=== PATIENT | female | born 1965 | race Caucasian/White ===

== ENCOUNTER 2016-12-06 18:00 | Emergency (ER) | payer MEDICAID ==
[~2016-12-06] VITALS: Ht 162.6 cm; Wt 87.3 kg
[~2016-12-06 18:00] MED LIST: ALPR0.5T PO; ASPI81TA3 PO; CYCL-319 PO; GLIP-95 PO; HYDR-906 PO; IBUP400T22 PO; LISI10TA2 PO; METF-480 PO; SIMV20TA PO; SITA100T8 PO
[2016-12-06 18:01] VITALS: Ht 162.6 cm; Wt 87.3 kg
[2016-12-06] MEDS ORDERED: METOCLOPRAMIDE 10 MG INJ IV STA (19:53)
[2016-12-06] MEDS ORDERED: SOD CHLORIDE 0.9% 1,000 ML IV STA (19:53)
[2016-12-06] MEDS ORDERED: DIPHENHYDRAMINE 50 MG INJ IV STA (19:53)
--- NOTE | 2016-12-06 20:47 | RADRPT ---
PROCEDURE: CT Brain without contrast. CLINICAL INDICATION: Headache TECHNIQUE: A CT of the brain was performed on a multidetector CT scanner utilizing axial sections from the skull base through the vertex without contrast. Images were reviewed on a high-resolution Zapproved workstation. Exam CTDI = 43.38 mGy and the DLP = 630.20 mGy-cm. One or more of the following dose reduction techniques were used: Automated exposure control Adjustment of the mA and/or kV according to patient size. Use of iterative reconstruction technique. COMPARISON: None available FINDINGS: There is no evidence of intracranial hemorrhage, mass effect or midline shift. No abnormal intra-ax ial or extra-axial fluid collections are seen. The density of the brain is normal and the gonzales/whit e matter differentiation is well preserved. The osseous structures are unremarkable. Paranasal sin uses are clear. IMPRESSION: 1. No intracranial hemorrhage, mass effect or midline shift. RPTAT: HHO .Nathan Quinonez MD, MD Date Time Electronically viewed and signed by .Nathan Quinonez MD, on 12/06/2016 20:46 .O/
[2016-12-06] MEDS ORDERED: ACET325T33 PO (21:18)
--- NOTE | 2016-12-07 01:20 | ERD ---
ER Documentation Chief Complaint Date/Time DATE: 12/07/16 TIME: 01:15 Chief Complaint HEADACHE SINCE MORNING HPI 51-year-old female presents to the emergency department complaining of headache since this morning. Patient describes the pain moderate in severity, describing as a tight band around his her head. She states she does have nausea this morning. She denies any dizziness, vision changes, no vomiting, lethargy. Patient states that she has been very stressed lately. ROS All systems reviewed and are negative except as per history of present illness. Medications Home Meds Active Scripts Acetaminophen* (Tylenol*) 325 Mg Tablet, 2 TAB PO Q4 Y for PAIN AND OR ELEVATED TEMP, #30 TAB Prov:ALVAREZ POLK PA-C 12/06/16 Cyclobenzaprine Hcl* (Cyclobenzaprine Hcl*) 10 Mg Tablet, 10 MG PO TID, #15 TAB Prov:ABILIO HASSAN [employer] PROFESSIONAL 03/30/16 Hydrocodone/Acetaminophen ([place] 5-325 Tablet) 1 Each Tablet, 1 TAB PO Q6H Y for PAIN, #20 TAB Prov:ABILIO HASSAN [employer] PROFESSIONAL 03/30/16 Ibuprofen* (Motrin*) 400 Mg Tab, 400 MG PO Q6H Y for PAIN AND OR ELEVATED TEMP, #30 TAB Prov:ABILIO HASSAN MILIT[employer] PROFESSIONAL 03/30/16 Alprazolam* (Xanax*) 0.5 Mg Tab, 0.5 MG PO Q8H Y for ANXIETY, #14 TAB Prov:ARMOND KIM DO 11/10/15 Reported Medications Metformin* (Glucophage*) 850 Mg Tablet, 850 MG PO WITH BREAKFAST DINNE, #60 TAB 11/04/15 Glipizide* (Glipizide*) 10 Mg Tablet, 20 MG PO BID, TAB 10/23/15 Simvastatin* (Zocor*) 20 Mg Tablet, 20 MG PO QHS, #30 TAB 10/23/15 Aspirin* (Aspirin* Chew) 81 Mg Tab.chew, 81 MG PO DAILY, TAB.CHEW 10/23/15 Lisinopril* (Lisinopril*) 10 Mg Tablet, 10 MG PO DAILY, #30 TAB 10/23/15 Sitagliptin* (Januvia*) 100 Mg Tablet, 100 MG PO DAILY, #30 TAB 10/23/15 Allergies Allergies: Coded Allergies: No Known Allergy (Unverified , 12/06/16) PMhx/Soc Medical and Surgical Hx: pt denies Surgical Hx History of Surgery: No Anesthesia Reaction: No Hx Neurological Disorder: No Hx Respiratory Disorders: No Hx Cardiac Disorders: Yes (CHELESTEROL) Hx Psychiatric Problems: No Hx Miscellaneous Medical Probl: Yes (DM2) Hx Alcohol Use: No Hx Substance Use: No Hx Tobacco Use: No Smoking Status: Never smoker Physical Exam Vitals Vital Signs Date Time Temp Pulse Resp B/P Pulse Ox O2 Delivery O2 Flow Rate FiO2 12/06/16 18:01 97.6 75 19 135/78 97 Physical Exam GENERAL: well-developed/well-nourished, in no apparent distress, non-toxic appearing HENT: NC/AT, bilateral tympanic membrane is normal with good cone of light, nares patent, oropharynx clear without exudates EYES: Conjunctiva normal, PERRLA, EOMI, no nystagmus noted NECK: Supple, no lymphadenopathy PULM: CTA bilaterally, no rales, rhonchi, or wheezing heard CV: Normal S1S2, RRR, good capillary refill GI: Soft, non-distended, normal bowel sounds, non-tender BACK: No midline tenderness, no masses, No CVAT EXT: No clubbing, cyanosis, or edema NEURO: Alert and orientated to person, place, and time. CN II-IIX intact. Gait and coordination were normal. Hand band tumbler strength were equal and within normal limits SKIN: Intact, normal turgor PSYCH: Normal mood and mentation, patient denied SI Results 24 hrs Current Medications Medications (Trade) Dose Ordered Sig/Sofia Route PRN Reason Start Time Stop Time Status Last Admin Dose Admin Sodium Chloride (NS) 1,000 ml @ 1,000 mls/hr Q1H STAT IV 12/06/16 19:53 12/06/16 20:52 DC 12/06/16 20:03 Metoclopramide HCl (Reglan) 10 mg ONCE STAT IV 12/06/16 19:53 12/06/16 19:56 DC 12/06/16 20:02 Diphenhydramine HCl (Benadryl) 25 mg ONCE STAT IV 12/06/16 19:53 12/06/16 19:56 DC 12/06/16 20:03 Procedures/MDM MDM: 51-year-old female presents with headache. My differential diagnoses include tension, migraine, and cluster headache, overuse medication headache, subarachnoid hemorrhage, meningitis, stroke. Pain relief was given in the ED with some improvement. Neurology exam was normal. CT did not show any evidence of acute pathology. He is hemodynamically stable and neurovascularly intact. Prescriptions tylenol were given. Discussed to follow up with a primary care physician in the next couple days. Return to the ER if condition worsens or not improving as expected. Patient agreed and understood this plan. Departure Diagnosis: Primary Impression: Headache Condition: Stable Patient Instructions: Tension Headaches, Self-Care for Headaches Referrals: NO PRIMARY,CARE PHYSICIAN (PCP) Additional Instructions: Visite a alexander leia lugo para un EXAMEN.Regrese a estas instalaciones si no se mejora antwon esperbamos o antwon le dijimos. [place] toda la medicina vanessa y antwon se le indic. Regrese a estas instalaciones si no se mejora antwon esperbamos o antwon le dijimos. ALVAREZ POLK PA-C Dec 07, 2016 01:20
== END 2016-12-06 21:19 | disposition home or self-care (01) ==
LOC: FTE 18:00
DX: R51 Headache (principal); E11.9 Type 2 diabetes mellitus without complications; Z79.82 Long term (current) use of aspirin; Z79.84 Long term (current) use of oral hypoglycemic drugs
CPT/HCPCS: 70450; J1200; J2765; J7030; 96361; 96374; 96375

== ENCOUNTER 2018-04-23 10:00 | Emergency (ER) | payer MEDICAID ==
[~2018-04-23] VITALS: Ht 167.6 cm; Wt 88.2 kg
[~2018-04-23 10:00] MED LIST changes: +ACET325T33 PO; +ASPI-903 PO; -ASPI81TA3 PO; -CYCL-319 PO; +CYCL10TA7 PO; -GLIP-95 PO; +GLIP10TA14 PO; +HYDR-4011 PO; -HYDR-906 PO; +IBUP-1561 PO; -IBUP400T22 PO; +SITA100T11 PO; -SITA100T8 PO
[2018-04-23 10:06] VITALS: BP 120/75; PULSE 85; RESP 20; Ht 167.6 cm; Wt 88.2 kg
[2018-04-23] MEDS ORDERED: KETOROLAC 15 MG INJ IM STA (10:32)
[2018-04-23] MEDS ORDERED: IBUP-1542 PO (10:34)
[2018-04-23] MEDS ORDERED: BACL10TA PO (10:34)
--- NOTE | 2018-04-23 10:41 | ERD ---
ER Documentation Chief Complaint Chief Complaint Complain sof severe headache x 2 days HPI Patient is a 53-year-old female with a past medical history of hypertension, DM type II, hyperlipidemia, presents the ER for concerns of a left-sided headache times 2 days. Patient describes the pain to be in the left occipital region as well as the left upper shoulder. Patient states the pain has been getting gradually worse. Patient denies any sudden, 10 out of 10, worse headache of life. Patient has had similar headaches in the past. Patient denies any nausea, vomiting, blurry vision, photophobia, phonophobia. Patient denies any fevers, chills, neck pain, neck stiffness. Patient denies any chest pain, shortness of breath, seizures, LOC. Patient denies any abdominal pain. Patient has not taken any pain medications. 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 ROS All systems reviewed and are negative except as per history of present illness. Medications Home Meds Active Scripts Ibuprofen* (Motrin*) 600 Mg Tab, 600 MG PO Q6, #15 TAB Prov:EJ MAHARAJC 04/23/18 Baclofen* (Baclofen*) 10 Mg Tablet, 10 MG PO Q8, #15 TAB Prov:EJ MAHARAJ PA-C 04/23/18 Acetaminophen* (Tylenol*) 325 Mg Tablet, 2 TAB PO Q4 PRN for PAIN AND OR ELEVATED TEMP, #30 TAB Prov:ALVAREZ POLK PA-C 12/06/16 Cyclobenzaprine Hcl* (Cyclobenzaprine Hcl*) 10 Mg Tablet, 10 MG PO TID, #15 TAB Prov:ABILIO HASSAN NP 03/30/16 Hydrocodone/Acetaminophen ([place] 5-325 Tablet) 1 Each Tablet, 1 TAB PO Q6H PRN for PAIN, #20 TAB Prov:ABILIO HASSAN NP 03/30/16 Ibuprofen* (Motrin*) 400 Mg Tab, 400 MG PO Q6H PRN for PAIN AND OR ELEVATED TEMP, #30 TAB Prov:ABILIO HASSAN NP 03/30/16 Alprazolam* (Xanax*) 0.5 Mg Tab, 0.5 MG PO Q8H PRN for ANXIETY, #14 TAB Prov:ARMOND KIM DO 11/10/15 Reported Medications Metformin* (Glucophage*) 850 Mg Tablet, 850 MG PO WITH BREAKFAST DINNE, #60 TAB 11/04/15 Glipizide* (Glipizide*) 10 Mg Tablet, 20 MG PO BID, TAB 10/23/15 Simvastatin* (Zocor*) 20 Mg Tablet, 20 MG PO QHS, #30 TAB 10/23/15 Aspirin* (Aspirin* Chew) 81 Mg Tab.chew, 81 MG PO DAILY, TAB.CHEW 10/23/15 Lisinopril* (Lisinopril*) 10 Mg Tablet, 10 MG PO DAILY, #30 TAB 10/23/15 Sitagliptin* (Januvia*) 100 Mg Tablet, 100 MG PO DAILY, #30 TAB 10/23/15 Allergies Allergies: Coded Allergies: No Known Allergy (Unverified , 12/06/16) PMhx/Soc History of Surgery: No Anesthesia Reaction: No Hx Neurological Disorder: No Hx Respiratory Disorders: No Hx Cardiac Disorders: Yes (CHELESTEROL) Hx Psychiatric Problems: No Hx Miscellaneous Medical Probl: Yes (DM2, HTN) Hx Alcohol Use: No Hx Substance Use: No Hx Tobacco Use: No Smoking Status: Never smoker FmHx Family History: diabetes Physical Exam Vitals Vital Signs Date Temp Pulse Resp B/P (MAP) Pulse Ox O2 O2 Flow FiO2 Time Delivery Rate 04/23/18 98.3 85 20 120/75 96 10:06 (90) Physical Exam GENERAL: Well-developed, well-nourished female. Appears in no acute distress. Speaking in full sentences HEAD: Normocephalic, atraumatic. EYES: Pupils are equally reactive bilaterally. EOMs grossly intact. No conjunctival erythema. ENT: Moist mucous membranes. No uvula deviation. No kissing tonsils. NECK: Supple. No meningismus. Normal range of motion of the neck. No cervical midline tenderness. Tender to palpation over the left trapezius muscles. Pain is reproducible. Positive spasms noted. LUNG: Clear to auscultation bilaterally. No rhonchi, wheezing, rales or coarse breath sounds. HEART: Regular rate and rhythm. No murmurs, rubs or gallops. BACK: No midline tenderness. EXTREMITIES: Equal pulses bilaterally. No peripheral clubbing, cyanosis or edema. No unilateral leg swelling. NEUROLOGIC: Alert and oriented x3, cooperative. Mood and affect appropriate to situation. Cranial nerves II through XII are grossly intact. Normal speech. Motor exam: 5/5 strength in upper and lower extremities. Sensory exam: Sensation intact to light touch on all four extremities. Cerebellar function exam: No dysmetria on dgaesx-vo-wird and azal-cp-ulsf test. Steady gait. No pronator drift. Results 24 hrs Current Medications Medications Dose Sig/Sofia Start Time Status Last (Trade) Ordered Route PRN Stop Time Admin Dose Reason Admin Ketorolac 15 mg ONCE STAT 04/23/18 DC Tromethamine IM 10:32 (Toradol) 04/23/18 10:33 Procedures/MDM MEDICAL DECISION MAKING: This is a 53-year-old female who presents ER for concerns of left-sided occipital headache as well as left-sided shoulder pain times 2 days. Vital signs were reviewed. Patient was afebrile. Patient is not hypoxic. Patient stated that the headache was gradual. Patient stated that current headache was similar to headaches in the past. Patient denied any fevers, neck stiffness, jaw claudication, visual changes or LOC. Full neurological exam was normal. Patient did have tenderness to palpation of the left trapezius muscle. Pain was reproducible. Patient likely has a tension headache secondary to muscles spasms. Patient was given Toradol 15 mg IM here in the ER. Patient did report improvement in pain prior to discharge. I do not feel that CT imaging was indicated at this time as patient's neuro exam was normal. Reviewed the patient's medical record showed that patient did have a CT of her brain on 12-06-16 and it was unremarkable. Differential diagnosis includes but is not limited to CVA, TIA, intracranial hemorrhage, ACS, dissection, meningitis, encephalitis, CO poisoning, temporal arteritis, benign intracranial hypertension, intracranial mass, glaucoma, preeclampsia, sinusitis, tension headache, migraine headache, cluster headache. Patient was nontoxic, non-ill appearing prior to discharge. PRESCRIPTIONS: Tylenol Baclofen, patient advised not to take this medication when driving or operating any machinery. DISCHARGE: At this time, patient is stable for discharge and outpatient management. I have encouraged the patient to hydrate well. I have instructed the patient to follow- up with his/her primary care physician in 1-2 days. If symptoms persist, patient may need to see a specialist for further examinations and testing. I have instructed the patient to promptly return to the ER at any time for any new or worsening symptoms including increased increased pain, fever, nausea, vomiting, numbness, neck stiffness, visual changes, weakness or LOC. The patient and/or family expressed understanding of and agreement with this plan. All questions were answered. Home care instructions were provided. Disclaimer: Inadvertent spelling and grammatical errors are likely due to EHR/dictation software use and do not reflect on the overall quality of patient care. Also, please note that the electronic time recorded on this note does not necessarily reflect the actual time of the patient encounter. Departure Diagnosis: Primary Impression: Headache Headache type: unspecified Headache chronicity pattern: unspecified pattern Intractability: not intractable Qualified Codes: R51 - Headache Additional Impression: Muscle spasm Condition: Fair Patient Instructions: Self-Care for Headaches Referrals: [facility] YOU HAVE RECEIVED A MEDICAL SCREENING EXAM AND THE RESULTS INDICATE THAT YOU DO NOT HAVE A CONDITION THAT REQUIRES URGENT TREATMENT IN THE EMERGENCY DEPARTMENT. FURTHER EVALUATION AND TREATMENT OF YOUR CONDITION CAN WAIT UNTIL YOU ARE SEEN IN YOUR DOCTORS OFFICE WITHIN THE NEXT 1-2 DAYS. IT IS YOUR RESPONSIBILITY TO MAKE AN APPOINTMENT FOR FOLOW-UP CARE. IF YOU HAVE A PRIMARY DOCTOR --you should call your primary doctor and schedule an appointment IF YOU DO NOT HAVE A PRIMARY DOCTOR YOU CAN CALL OUR PHYSICIAN REFERRAL HOTLINE AT IF YOU CAN NOT AFFORD TO SEE A PHYSICIAN YOU CAN CHOSE FROM THE FOLLOWING [facility] [address] [facility] [address] [employer] [email or web address] [address] [facility] [address] [facility] [address] [facility]. [facility]. [address] [facility]. [facility] YOU HAVE RECEIVED A MEDICAL SCREENING EXAM AND THE RESULTS INDICATE THAT YOU DO NOT HAVE A CONDITION THAT REQUIRES URGENT TREATMENT IN THE EMERGENCY DEPARTMENT. FURTHER EVALUATION AND TREATMENT OF YOUR CONDITION CAN WAIT UNTIL YOU ARE SEEN IN YOUR DOCTORS OFFICE WITHIN THE NEXT 1-2 DAYS. IT IS YOUR RESPONSIBILITY TO MAKE AN APPOINTMENT FOR FOLOW-UP CARE. IF YOU HAVE A PRIMARY DOCTOR --you should call your primary doctor and schedule and appointment IF YOU DO NOT HAVE A PRIMARY DOCTOR YOU CAN CALL OUR PHYSICIAN REFERRAL HOTLINE AT . IF YOU CAN NOT AFFORD TO SEE A PHYSICIAN YOU CAN CHOSE FROM THE FOLLOWING [facility] INSTITUTIONS: [facility] [address] [place] [address] [facility] [address] [place] [address] [facility] [address] [place] [address] Additional Instructions: Do not take baclofen when driving or operating any machinery. Call your primary care doctor TOMORROW for an appointment during the next 1-2 days.See the doctor sooner or return here if your condition worsens before your appointment time. EJ MAHARAJ PA-C Apr 23, 2018 10:41
== END 2018-04-23 10:46 | disposition home or self-care (01) ==
LOC: FTE 10:02
DX: R51 Headache (principal); M62.838 Other muscle spasm; E11.9 Type 2 diabetes mellitus without complications; I10 Essential (primary) hypertension; Z79.82 Long term (current) use of aspirin; Z79.84 Long term (current) use of oral hypoglycemic drugs
CPT/HCPCS: 96372; J1885; Z7502

== ENCOUNTER 2018-05-28 21:25 | Emergency (ER) | payer MEDICAID ==
[~2018-05-28] VITALS: Ht 165.1 cm; Wt 81.8 kg
[~2018-05-28 21:25] MED LIST changes: +BACL10TA PO; +IBUP-1542 PO
[2018-05-28 21:47] VITALS: BP 138/69; PULSE 83; RESP 18; Ht 165.1 cm; Wt 81.8 kg
[2018-05-29] MEDS ORDERED: HYDROCODONE/APAP (5/325) TAB PO ONE (00:30)
[2018-05-29] MEDS ORDERED: DIAZEPAM 5 MG TAB PO ONE (00:30)
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
[2018-05-29] MEDS ORDERED: IBUP-1542 PO (01:14)
== END 2018-05-29 06:22 | disposition home or self-care (01) ==
LOC: FTE 21:25
DX: M25.561 Pain in right knee (principal); M25.562 Pain in left knee; M25.571 Pain in right ankle and joints of right foot; M25.572 Pain in left ankle and joints of left foot; E11.9 Type 2 diabetes mellitus without complications; I10 Essential (primary) hypertension; Z79.82 Long term (current) use of aspirin; Z79.84 Long term (current) use of oral hypoglycemic drugs
CPT/HCPCS: 73562; 73590; 73610; 84703; Z7502; Z7610

== ENCOUNTER 2018-12-08 13:59 | Emergency (ER) | payer MEDICAID ==
[~2018-12-08] VITALS: Ht 167.6 cm; Wt 83.8 kg
[~2018-12-08 13:59] MED LIST changes: +DOXY100T20 PO
[2018-12-08 14:06] VITALS: Ht 167.6 cm; Wt 83.8 kg
[2018-12-08] MEDS ORDERED: IBUPROFEN 600 MG TAB PO ONE (16:30)
[2018-12-08] MEDS ORDERED: LIDOCAINE 1% (MDV) 20 ML INJ SC ONE (17:00)
[2018-12-08 17:40] VITALS: BP 122/66; PULSE 76; RESP 18
--- NOTE | 2018-12-08 23:44 | ERD ---
ER Documentation Chief Complaint Chief Complaint Pt reporting abscess to back for years, worst over last week HPI 53-year-old female presents the emergency department complaining of a lump felt to her mid back just right of the midline with the past 3 years but worsening over the past 2 days. She reports pain which is 8/10 severity and constant and worse when applying pressure to the area. She denies any discharge from the area. She denies any fevers or chills or other symptoms at this time. ROS All systems reviewed and are negative except as per history of present illness. Medications Home Meds Active Scripts Ibuprofen* (Motrin*) 600 Mg Tab, 600 MG PO Q6, #30 TAB Prov:ELLIE HOLLY PA-C 12/08/18 Doxycycline Hyclate* (Doxycycline Hyclate*) 100 Mg Tablet.dr, 100 MG PO BID for 10 Days, TAB Prov:ELLIE HOLLY PA-C 12/08/18 Ibuprofen* (Motrin*) 600 Mg Tab, 600 MG PO Q6, #30 TAB Prov:ENA SPENCER PA-C 05/29/18 Ibuprofen* (Motrin*) 600 Mg Tab, 600 MG PO Q6, #15 TAB Prov:EJ MAHARAJC 04/23/18 Baclofen* (Baclofen*) 10 Mg Tablet, 10 MG PO Q8, #15 TAB Prov:EJ MAHARAJC 04/23/18 Acetaminophen* (Tylenol*) 325 Mg Tablet, 2 TAB PO Q4 PRN for PAIN AND OR ELEVATED TEMP, #30 TAB Prov:ALVAREZ POLK PA-C 12/06/16 Cyclobenzaprine Hcl* (Cyclobenzaprine Hcl*) 10 Mg Tablet, 10 MG PO TID, #15 TAB Prov:ABILIO HASSAN NP 03/30/16 Hydrocodone/Acetaminophen ([place] 5-325 Tablet) 1 Each Tablet, 1 TAB PO Q6H PRN for PAIN, #20 TAB Prov:ABILIO HASSAN NP 03/30/16 Ibuprofen* (Motrin*) 400 Mg Tab, 400 MG PO Q6H PRN for PAIN AND OR ELEVATED TEMP, #30 TAB Prov:ABILIO HASSAN NP 03/30/16 Alprazolam* (Xanax*) 0.5 Mg Tab, 0.5 MG PO Q8H PRN for ANXIETY, #14 TAB Prov:ARMOND KIM DO 11/10/15 Reported Medications Metformin* (Glucophage*) 850 Mg Tablet, 850 MG PO WITH BREAKFAST DINNE, #60 TAB 11/04/15 Glipizide* (Glipizide*) 10 Mg Tablet, 20 MG PO BID, TAB 10/23/15 Simvastatin* (Zocor*) 20 Mg Tablet, 20 MG PO QHS, #30 TAB 10/23/15 Aspirin* (Aspirin* Chew) 81 Mg Tab.chew, 81 MG PO DAILY, TAB.CHEW 10/23/15 Lisinopril* (Lisinopril*) 10 Mg Tablet, 10 MG PO DAILY, #30 TAB 10/23/15 Sitagliptin* (Januvia*) 100 Mg Tablet, 100 MG PO DAILY, #30 TAB 10/23/15 Allergies Allergies: Coded Allergies: No Known Allergy (Unverified , 12/06/16) PMhx/Soc Medical and Surgical Hx: pt denies Surgical Hx History of Surgery: No Anesthesia Reaction: No Hx Neurological Disorder: No Hx Respiratory Disorders: No Hx Cardiac Disorders: Yes (HTN, HIGH CHOLESTEROL) Hx Psychiatric Problems: No Hx Miscellaneous Medical Probl: No Hx Alcohol Use: No Hx Substance Use: No Hx Tobacco Use: No Smoking Status: Never smoker FmHx Family History: No diabetes Physical Exam Vitals Vital Signs Date Temp Pulse Resp B/P (MAP) Pulse Ox O2 O2 Flow FiO2 Time Delivery Rate 12/08/18 98.0 76 18 122/66 97 Room Air 17:40 (84) 12/08/18 98.2 70 16 125/68 97 14:06 (87) Physical Exam Const: No acute distress Head: Atraumatic Eyes: Normal Conjunctiva ENT: Normal External Ears, Nose and Mouth. Neck: Full range of motion. No meningismus. Resp: Clear to auscultation bilaterally Cardio: Regular rate and rhythm, no murmurs Skin: No petechiae or rashes Back: There is an approximate 5 cm x 5 cm palpable cyst to the mid back just right of the midline. Mild fluctuance in the center. No surrounding erythema or warmth. Ext: No cyanosis, or edema Neur: Awake and alert Psych: Normal Mood and Affect Results 24 hrs Laboratory Tests Test 12/08/18 16:35 Bedside Glucose 104 mg/dL Current Medications Medications Dose Sig/Sofia Start Time Status Last (Trade) Ordered Route PRN Stop Time Admin Dose Reason Admin Ibuprofen 600 mg ONCE ONCE 12/08/18 DC 12/08/18 (Motrin) PO 16:30 16:31 12/08/18 16:31 Lidocaine 20 ml ONCE ONCE 12/08/18 DC (Xylocaine SC 17:00 1% (Mdv) 20 12/08/18 17:01 ml) Procedures/MDM 53-year-old female presents emergency department with signs and symptoms consistent with infected sebaceous cyst. She was informed of the full risks, benefits, alternatives of incision and drainage and she gave verbal consent. Abscess Incision and Drainage with irrigation by me: Location: Mid back just right of the midline Anesthesia: Local 1% Lidocaine Technique: Irrigated. Disrupted loculations w/ instrumentation Packing: None Complications: Neurovascularly intact post procedure 48 hour wound check. Scar minimization instructions given. Patient's dermatologic symptoms have stabilized while they have been evaluated in the department and are appropriate for outpatient work up. No evidence of Maxx Twin's syndrome, Kawasaki's, or sepsis. No evidence of life-threatening pathology at time of discharge. Pt/family in agreement with discharge plan/diagnosis. Pt/family advised to return immediately with any new or worsening symptoms. Follow-up with primary care physician within the next 1-2 days. Departure Diagnosis: Primary Impression: Sebaceous cyst Condition: Fair Patient Instructions: Sebaceous Cyst, Infected (I And D) [facility]errals[facility] Usted se staley hecho un examen mdico de control que le indica que no est en cate condicin que requiera tratamiento urgente en el Departamento de Emergencia. Un estudio ms profundo y el tratamiento de liu condicin pueden esperar sin ningn riesgo hasta que usted sea atendida/o en el consultorio de liu mdico o cate clnica. Es responsabilidad suya arreglar cate darion para el seguimiento del odette. MANEJO DE CONDICIONES NO URGENTES EN EL FUTURO 1) Si usted tiene un mdico de atencin primaria: Usted debera llamar a liu mdico de atencin primaria antes de venir al departamento de emergencia. Despus de las horas de consultorio, liu doctor o liu asociado/a est disponible por telfono. El mdico o enfermero de adealide en el servicio telefnico puede asesorarle por isabelle medio para atender el problema, o odette contrario se puede programar cate darion. 2) Si usted no tiene un mdico de atencin primaria: Llame al mdico o clnica de referencia que aparece abajo darron las horas de consultorio para hacer cate darion para que le vean. CLINICAS: [facility] [phone] [facility] [phone] [address] [facility]. [facility] [phone] [address] [facility]. [place] [address] [phone] [facility] [place] [id number] [phone] [facility] [phone] [address] Additional Instructions: WOUND CHECK:CONSULTE A LIU MDICO EN 2 metcalf para rahul LIU HERIDA. Specialist:Usted tiene cate condicin mdica que requiere que donna a un especialista dentro de los prximos 1-2 metcalf.POR FAVOR,CON LIU SEGUIMIENTO DE PRIMARIA PHSICIAN refferal. SI USTED NO TIENE UN MDICO GENERAL Y / O USTED NO PUEDE PAGAR rahul a un mdico,los siguientes baird RECURSOS sido suministrado a usted. ES LIU RESPONSABILIDAD PARA SER VISTOS POR EL ESPECIALISTA:[employer] ELLIE HOLLY PA-C Dec 08, 2018 23:44
== END 2018-12-08 17:45 | disposition home or self-care (01) ==
LOC: FTE 13:59
DX: L72.3 Sebaceous cyst (principal); I10 Essential (primary) hypertension; E11.9 Type 2 diabetes mellitus without complications; Z79.82 Long term (current) use of aspirin; Z79.84 Long term (current) use of oral hypoglycemic drugs
CPT/HCPCS: 10060; 82962; Z7502; Z7610

== ENCOUNTER 2018-12-13 11:16 | Emergency (ER) | payer MEDICAID ==
[~2018-12-13] VITALS: Ht 154.9 cm; Wt 83.7 kg
[2018-12-13 11:26] VITALS: BP 139/72; PULSE 68; RESP 17; Ht 154.9 cm; Wt 83.7 kg
--- NOTE | 2018-12-13 12:40 | ERD ---
ER Documentation Chief Complaint Chief Complaint PT HERE FOR WOUND CHECK HPI 53-year-old female presents for wound recheck status post sebaceous cyst incision and drainage 5 days ago. Patient has been taking her doxycycline. Packing was removed 2 days ago. She states she still having a little bit of discharge but no pain. Denies any fevers or chills. No increasing swelling. No other complaints or injuries. ROS All systems reviewed and are negative except as per history of present illness. Medications Home Meds Active Scripts Ibuprofen* (Motrin*) 600 Mg Tab, 600 MG PO Q6, #30 TAB Prov:ELLIE HOLLYC 12/08/18 Doxycycline Hyclate* (Doxycycline Hyclate*) 100 Mg Tablet.dr, 100 MG PO BID for 10 Days, TAB Prov:ELLIE HOLLY PA-C 12/08/18 Ibuprofen* (Motrin*) 600 Mg Tab, 600 MG PO Q6, #30 TAB Prov:ENA SPENCERC 05/29/18 Ibuprofen* (Motrin*) 600 Mg Tab, 600 MG PO Q6, #15 TAB Prov:EJ MAHARAJC 04/23/18 Baclofen* (Baclofen*) 10 Mg Tablet, 10 MG PO Q8, #15 TAB Prov:EJ MAHARAJC 04/23/18 Acetaminophen* (Tylenol*) 325 Mg Tablet, 2 TAB PO Q4 PRN for PAIN AND OR ELEVATED TEMP, #30 TAB Prov:ALVAREZ POLKC 12/06/16 Cyclobenzaprine Hcl* (Cyclobenzaprine Hcl*) 10 Mg Tablet, 10 MG PO TID, #15 TAB Prov:ABILIO HASSAN NP 03/30/16 Hydrocodone/Acetaminophen ([place] 5-325 Tablet) 1 Each Tablet, 1 TAB PO Q6H PRN for PAIN, #20 TAB Prov:ABILIO HASSAN NP 03/30/16 Ibuprofen* (Motrin*) 400 Mg Tab, 400 MG PO Q6H PRN for PAIN AND OR ELEVATED TEMP, #30 TAB Prov:ABILIO HASSAN NP 03/30/16 Alprazolam* (Xanax*) 0.5 Mg Tab, 0.5 MG PO Q8H PRN for ANXIETY, #14 TAB Prov:ARMOND KIM DO 11/10/15 Reported Medications Metformin* (Glucophage*) 850 Mg Tablet, 850 MG PO WITH BREAKFAST DINNE, #60 TAB 11/04/15 Glipizide* (Glipizide*) 10 Mg Tablet, 20 MG PO BID, TAB 10/23/15 Simvastatin* (Zocor*) 20 Mg Tablet, 20 MG PO QHS, #30 TAB 10/23/15 Aspirin* (Aspirin* Chew) 81 Mg Tab.chew, 81 MG PO DAILY, TAB.CHEW 10/23/15 Lisinopril* (Lisinopril*) 10 Mg Tablet, 10 MG PO DAILY, #30 TAB 10/23/15 Sitagliptin* (Januvia*) 100 Mg Tablet, 100 MG PO DAILY, #30 TAB 10/23/15 Allergies Allergies: Coded Allergies: No Known Allergy (Unverified , 12/06/16) PMhx/Soc History of Surgery: No Anesthesia Reaction: No Hx Neurological Disorder: No Hx Respiratory Disorders: No Hx Cardiac Disorders: Yes (HTN, HIGH CHOLESTEROL) Hx Psychiatric Problems: No Hx Miscellaneous Medical Probl: No Hx Alcohol Use: No Hx Substance Use: No Hx Tobacco Use: No Physical Exam Vitals Vital Signs Date Temp Pulse Resp B/P (MAP) Pulse Ox O2 O2 Flow FiO2 Time Delivery Rate 12/13/18 97.2 68 17 139/72 98 11:26 (94) Physical Exam Const: No acute distress Head: Atraumatic Eyes: Normal Conjunctiva ENT: Normal External Ears, Nose and Mouth. Neck: Full range of motion. No meningismus. Skin: + Well-healing incision to the mid right upper back, small amount of purulent discharge, no surrounding erythema or warmth. No induration. No packing in place. Neur: Awake and alert Psych: Normal Mood and Affect Procedures/MDM MEDICAL DECISION MAKIN-year-old female presents for wound recheck status post sebaceous cyst incision and drainage 5 days ago. Wound is healing well. No signs of ischemic necrosis, abscess, sepsis or other deep space infection. Patient still has small amount of discharge so incision was covered with gauze, she was instructed to remove this and clean with gentle soap and water in 2 days. She is told to continue with her doxycycline. Pt is stable for outpatient follow up and management. She was told to follow-up with her primary care doctor next week, return here as needed. PRESCRIPTIONS: None, patient ready taking doxycycline ibuprofen SPECIALIST FOLLOW UP RECOMMENDED: None Departure Diagnosis: Primary Impression: Encounter for wound re-check Additional Impression: Sebaceous cyst Condition: Stable Patient Instructions: Wound Care Referrals: [facility] YOU HAVE RECEIVED A MEDICAL SCREENING EXAM AND THE RESULTS INDICATE THAT YOU DO NOT HAVE A CONDITION THAT REQUIRES URGENT TREATMENT IN THE EMERGENCY DEPARTMENT. FURTHER EVALUATION AND TREATMENT OF YOUR CONDITION CAN WAIT UNTIL YOU ARE SEEN IN YOUR DOCTORS OFFICE WITHIN THE NEXT 1-2 DAYS. IT IS YOUR RESPONSIBILITY TO MAKE AN APPOINTMENT FOR FOLOW-UP CARE. IF YOU HAVE A PRIMARY DOCTOR --you should call your primary doctor and schedule an appointment IF YOU DO NOT HAVE A PRIMARY DOCTOR YOU CAN CALL OUR PHYSICIAN REFERRAL HOTLINE AT IF YOU CAN NOT AFFORD TO SEE A PHYSICIAN YOU CAN CHOSE FROM THE FOLLOWING [facility] [address]. [facility] [address] [facility] [address] [facility]. [facility] [address] [facility] [facility] [address] [facility] [facility] [address] [facility]. [facility]. [address] [facility]. [facility] YOU HAVE RECEIVED A MEDICAL SCREENING EXAM AND THE RESULTS INDICATE THAT YOU DO NOT HAVE A CONDITION THAT REQUIRES URGENT TREATMENT IN THE EMERGENCY DEPARTMENT. FURTHER EVALUATION AND TREATMENT OF YOUR CONDITION CAN WAIT UNTIL YOU ARE SEEN IN YOUR DOCTORS OFFICE WITHIN THE NEXT 1-2 DAYS. IT IS YOUR RESPONSIBILITY TO MAKE AN APPOINTMENT FOR FOLOW-UP CARE. IF YOU HAVE A PRIMARY DOCTOR --you should call your primary doctor and schedule and appointment IF YOU DO NOT HAVE A PRIMARY DOCTOR YOU CAN CALL OUR PHYSICIAN REFERRAL HOTLINE AT . IF YOU CAN NOT AFFORD TO SEE A PHYSICIAN YOU CAN CHOSE FROM THE FOLLOWING [facility] INSTITUTIONS[facility] [address] [place] [address] [facility] [address] [place] [address] [facility] [address] [place] [address] Additional Instructions: Finish antibiotics, keep the wound covered for another 2 days, after 2 days, remove the dressing and you can cleanse normally with regular soap and water. You can return here for any increasing pain, redness, discharge, fevers or any other concerns. Otherwise follow-up with her regular care doctor next week. ANGIE HERNANDEZ PA-C Dec 13, 2018 12:40
== END 2018-12-13 12:51 | disposition home or self-care (01) ==
LOC: FTE 11:16
DX: L72.3 Sebaceous cyst (principal); I10 Essential (primary) hypertension; E11.9 Type 2 diabetes mellitus without complications; Z79.84 Long term (current) use of oral hypoglycemic drugs; Z79.82 Long term (current) use of aspirin
CPT/HCPCS: 99281

== ENCOUNTER 2019-02-09 17:43 | Emergency (ER) | payer MEDICAID ==
[~2019-02-09] VITALS: Ht 162.6 cm; Wt 81.7 kg
[~2019-02-09 17:43] MED LIST changes: +BEN25 PO; +DOXY-214 PO; -DOXY100T20 PO; +ERYT1OIN6 LEFT EYE; +POLY10DR19 LEFT EYE
[2019-02-09 18:04] VITALS: Ht 162.6 cm; Wt 81.7 kg
[2019-02-09 21:09] VITALS: BP 117/71; PULSE 67; RESP 18
== END 2019-02-09 21:10 | disposition home or self-care (01) ==
LOC: FTE 17:43
DX: H57.89 Other specified disorders of eye and adnexa (principal)
CPT/HCPCS: 99283